=== PATIENT | male | born 1960 | race Caucasian/White ===

== ENCOUNTER 2022-07-27 06:20 | Day surgery (SDC) | payer OTHER, SELFPAY ==
[2022-07-27] VITALS (13 sets, daily range): BP systolic 91–138; BP diastolic 49–88; PULSE 72–79; RESP 16–21; TEMP 36.5–37.1; O2SAT 93–97; BMI 39.8
[2022-07-27] MEDS: LACTATED RINGERS 1000 ML 1,000 ML 100 ML IV ×2 (06:10→08:10)
--- NOTE | 2022-07-27 07:13 | W.ANESCHARGE ---
Anesthesia Charges Start Date/Time Anesthesia Start Date: 07/27/22 Anesthesia Start Time: 07:37 Stop Date/Time Anesthesia Stop Date: 07/27/22 Anesthesia Stop Time: 09:13
[2022-07-27] MEDS: CLINDAMYCIN 900 MG/50 ML-D5W IVPB (07:50)
[2022-07-27] MEDS: BUPIVACAINE 0.25% 30 ML INJECTION (08:58)
--- NOTE | 2022-07-27 09:11 | PM.GSPRC ---
Operative Note Date of procedure: 07/27/22 Pre-op diagnosis: Incarcerated Umbilical hernia Post-op diagnosis: Same Type of Procedure: Open umbilical hernia repair with mesh Indications: The patient is a 61-year-old male who has had an umbilical hernia for some time. Previously we had discussed repair, however he underwent knee surgery in this was post some. More recently he developed cellulitis of the umbilicus. This was treated with antibiotics and resolved, however because of this it was recommended he undergo hernia repair. Procedure Description: After discussing the risks and benefits of the procedure, the patient signed informed consent.? The operative site was marked and the patient was brought to the operating room and placed on the operating table in supine position.? Care was taken to pad the patient's pressure points.?? The patient was then intubated by anesthesia.?? The operative site was then prepped and draped in the usual sterile fashion.? A time-out was then performed. Local anesthetic was injected into the fascia, skin and subcutaneous tissues. A curvilinear incision was made at the umbilicus. Dissection was carried down into the subcutaneous tissue using cautery. The hernia sac was encountered and care was taken to not enter it. Dissection was taken down to the fascia, and the umbilical stalk was carefully dissected off of the hernia sac. The hernia contained a large amount of fat and was unable to be reduced. The hernia sac was then opened and excised from the fascial edges. This was discarded. The omental fat was care fully dissected with cautery to ensure there was no bowel. There was not. This was ligated and divided with clamps and ties and reduced into the abdomen. The fascial edges were then cleared circumferentially. The hernia was 2 cm in size] and so the decision was made to use a piece of mesh. A preperitoneal pocket was created using a combination of blunt dissection and cautery. Hemostasis appeared adequate. Once the posterior fascia was clear, a piece of medium Ventralex ST hernia mesh was placed in the preperitoneal space with care to ensure that it laid flat. This was secured into place using 2 0 PDS interrupted sutures. The tails were then trimmed and the fascial opening was closed with a running 0 Vicryl. The umbilicus was reapproximated to the fascia. The skin was then closed with running absorbable suture. Glue and a sterile dressing was then applied. ? The patient was then woken and transported to the recovery area in stable condition. ? The patient tolerated the procedure well. Findings: Umbilical hernia containing incarcerated omental fat. Anesthesia: GETA Surgeon: Albina Peguero MD Estimated blood loss (mL): 5 Condition: stable Disposition: PACU
--- NOTE | 2022-07-27 09:16 | W.ANESCHARGE ---
Anesthesia Charges Start Date/Time Anesthesia Start Date: 07/27/22 Anesthesia Start Time: 07:37 Stop Date/Time Anesthesia Stop Date: 07/27/22 Anesthesia Stop Time: 09:13
[2022-07-27] MEDS: fentaNYL 100 MCG/2 ML inj 50 MCG IVP (09:48)
--- NOTE | 2022-07-27 10:03 | SUR.PHASEI ---
patient met discharge criteria per anesthesia
[2022-07-27] MEDS: HYDROCODONE-ACETAMIN 5-325 MG 1 TAB PO (10:23)
== END 2022-07-27 10:47 | disposition home or self-care (01) ==
PROVIDERS: PCP Family Medicine; Visit Provider Surgery
PROC: (CPT 49592; principal; 2022-07-27 07:30)
DX: K42.0 Umbilical hernia with obstruction, without gangrene (principal)
CPT/HCPCS: 49592; 00830; A9270; C1781; J0330; J1100; J1170; J2250; J2405; J2704; J3010; J3490; J7120; S0077